=== PATIENT | female | born 1970 | race Caucasian/White ===

== ENCOUNTER → 2017-12-03 | Outpatient (CLI) | payer BC ==
[~2017-12-03] MED LIST: BIRTH CONTROL; PANT40 PO; VENL75ER; VICODIN 5-3001 EACH PO; [UNRECOGNIZED DRUG - REMARK]
== END | disposition home or self-care (01) ==
LOC: LAB SHORT 08:32 → PLD 08:32
DX: D22.5 Melanocytic nevi of trunk (principal); L57.0 Actinic keratosis
CPT/HCPCS: 88305

== ENCOUNTER → 2018-11-13 | Outpatient (CLI) | payer BC ==
[2018-11-13 11:55] LABS: BASOPHILS ABSOLUTE AUTO 0.06 K/mm3 (0.00-0.23); BASOPHILS PERCENT AUTO 1 % (0-2); EOSINOPHILS ABSOLUTE AUTO 0.09 K/mm3 (0.00-0.68); EOSINOPHILS PERCENT AUTO 1 % (0-6); Hematocrit 40.3 % (33.0-51.0); Hemoglobin 13.5 g/dL (11.5-16.0); IMMATURE GRAN ABSOLUTE AUTO 0.01 K/mm3 (0.00-0.10); IMMATURE GRAN PERCENT AUTO 0 % (0-1); LYMPHOCYTES ABSOLUTE AUTO 1.96 K/mm3 (0.84-5.20); LYMPHOCYTES PERCENT AUTO 23 % (21-46); MONOCYTES ABSOLUTE AUTO 0.61 K/mm3 (0.16-1.47); MONOCYTES PERCENT AUTO 7 % (4-13); Mean Corpuscular HGB 34.5 pg (26.0-34.0); Mean Corpuscular HGB Conc 33.5 g/dL (31.5-36.5); Mean Corpuscular Volume 103 fL (80-100); Mean Platelet Volume 9.7 fL (9.1-12.4); NEUTROPHILS ABSOLUTE AUTO 5.66 K/mm3 (1.96-9.15); NEUTROPHILS PERCENT AUTO 67 % (41-73); Platelet Count 233 K/mm3 (150-400); RDW Coefficient Variation 13.1 % (11.7-14.2); RDW Standard Deviation 49.9 fL (35.1-46.3); Red Blood Cell Count 3.91 M/mm3 (3.80-5.20); White Blood Cell Count 8.39 K/mm3 (4.00-11.30)
[2018-11-13 12:24] LABS: Alanine Aminotransfer (ALT/SGP 24 U/L (12-78); Alk Phos 41 U/L (50-136); Anion Gap 8 mmol/L (6-16); Aspartate Aminotrans (AST/SGOT 18 U/L (12-37); Bilirubin, Total 0.5 mg/dL (0.1-1.0); Blood Urea Nitrogen 10 mg/dL (8-24); Bun/Creatinine Ratio 16.1 (12.0-20.0); CO2, Blood 24 mmol/L (21-32); Calcium, Blood 8.5 mg/dL (8.5-10.1); Chloride, Blood 103 mmol/L (98-108); Creatinine, Blood 0.62 mg/dL (0.40-1.00); Glomerular Filtration Rate >60 (60-); Glucose, Blood 84 mg/dL (70-99); Potassium, Blood 3.4 mmol/L (3.5-5.5); Sodium, Blood 135 mmol/L (136-145)
== END | disposition home or self-care (01) ==
LOC: LAB SHORT 11:48 → LAB 11:48
DX: R10.9 Unspecified abdominal pain (principal)
CPT/HCPCS: 80053; 83690; 85025

== ENCOUNTER 2019-06-11 07:44 | Day surgery (SDC) | payer BC ==
[~2019-06-11 07:44] MED LIST changes: +Chantix1 MG PO; +Norco 10-325 T1 EACH PO; +PROAIR RESPICL90 MCG INH; +VENLAFAXINE HCL75 M1 PO
[2019-06-11] MEDS ORDERED: PANT40 PO (08:29)
[2019-06-11] MEDS ORDERED: ORTHO NOVUM PO (08:29)
[2019-06-11] MEDS ORDERED: BUPR150ER PO (08:29)
[2019-06-11] MEDS ORDERED: Prinivil10 MG PO (08:29)
== END 2019-06-11 10:33 | disposition home or self-care (01) ==
LOC: ORSCSDS 07:44
PROVIDERS: Otolaryngology
PROC: 0CB3XZX Excision of Soft Palate, External Approach, Diagnostic (ICD-10-PCS; principal; 2019-06-11 09:00)
PROC: 0CTPXZZ Resection of Tonsils, External Approach (ICD-10-PCS; principal; 2019-06-11 09:00)
DX: D10.4 Benign neoplasm of tonsil (principal); D10.39 Benign neoplasm of other parts of mouth; F17.210 Nicotine dependence, cigarettes, uncomplicated
CPT/HCPCS: 88304; 88305; J0330; J1100; J2001; J2250; J2704; J3010; J7120

== ENCOUNTER → 2019-08-12 | Outpatient (CLI) | payer BC ==
[~2019-08-12] MED LIST changes: +BUPR150ER PO; +ORTHO NOVUM PO; +Prinivil10 MG PO
== END | disposition home or self-care (01) ==
LOC: PLD 13:49 → LAB SHORT 13:49
DX: L57.0 Actinic keratosis (principal)
CPT/HCPCS: 88305

== ENCOUNTER 2019-12-29 09:14 | Day surgery (SDC) | payer BC ==
[~2019-12-29] VITALS: Ht 167.6 cm; Wt 77.0 kg
[~2019-12-29 09:14] MED LIST changes: +HYDACE10B PO; +PROAIR DIGIHAL90 MCG
== END 2019-12-29 11:02 | disposition home or self-care (01) ==
LOC: ORSCSDS 09:14
PROVIDERS: Surgery
PROC: 0DJD8ZZ Inspection of Lower Intestinal Tract, Via Natural or Artificial Opening Endoscopic (ICD-10-PCS; principal; 2019-12-29 10:30)
DX: Z12.11 Encounter for screening for malignant neoplasm of colon (principal); Z87.891 Personal history of nicotine dependence
CPT/HCPCS: J2250; J2704; J7120

== ENCOUNTER 2021-01-26 13:11 | Day surgery (SDC) | payer BC ==
[~2021-01-26] VITALS: Ht 170.2 cm; Wt 79.8 kg
== END 2021-01-26 14:50 | disposition home or self-care (01) ==
LOC: ORSCSDS 13:11
PROVIDERS: Surgery
PROC: 0DB68ZX Excision of Stomach, Via Natural or Artificial Opening Endoscopic, Diagnostic (ICD-10-PCS; principal; 2021-01-26 14:15)
PROC: 0DB58ZX Excision of Esophagus, Via Natural or Artificial Opening Endoscopic, Diagnostic (ICD-10-PCS; principal; 2021-01-26 14:15)
DX: K21.9 Gastro-esophageal reflux disease without esophagitis (principal); K22.70 Barrett's esophagus without dysplasia; F41.8 Other specified anxiety disorders; Z79.899 Other long term (current) drug therapy
CPT/HCPCS: 88305; 88342; J2250; J2704; J7120

== ENCOUNTER 2022-07-13 07:19 | Day surgery (SDC) | payer BC ==
[~2022-07-13] VITALS: Ht 170.2 cm; Wt 79.1 kg
[2022-07-13] MEDS ORDERED: Prinivil10 MG (07:39)
[2022-07-13] MEDS ORDERED: OMEP20ER (07:39)
== END 2022-07-13 09:45 | disposition home or self-care (01) ==
LOC: ORSCSDS 07:19
PROVIDERS: Surgery
PROC: 0DB48ZX Excision of Esophagogastric Junction, Via Natural or Artificial Opening Endoscopic, Diagnostic (ICD-10-PCS; principal; 2022-07-13 09:00)
PROC: 0DB58ZX Excision of Esophagus, Via Natural or Artificial Opening Endoscopic, Diagnostic (ICD-10-PCS; principal; 2022-07-13 09:00)
PROC: 0DB68ZX Excision of Stomach, Via Natural or Artificial Opening Endoscopic, Diagnostic (ICD-10-PCS; principal; 2022-07-13 09:00)
DX: K22.70 Barrett's esophagus without dysplasia (principal); K21.9 Gastro-esophageal reflux disease without esophagitis; F32.A Depression, unspecified; F41.9 Anxiety disorder, unspecified; F10.10 Alcohol abuse, uncomplicated; K29.70 Gastritis, unspecified, without bleeding; Z87.891 Personal history of nicotine dependence; Z79.899 Other long term (current) drug therapy
CPT/HCPCS: 88305; 88342; J2704; J7120

== ENCOUNTER 2022-11-16 13:55 | Emergency (ER) | payer BC ==
[~2022-11-16] VITALS: Ht 167.6 cm; Wt 80.3 kg
[~2022-11-16 13:55] MED LIST changes: +OMEP20ER; +Prinivil10 MG
[2022-11-16] MEDS ORDERED: BUPROPION XL150 M1 PO (14:58)
[2022-11-16 15:08] LABS: BASOPHILS ABSOLUTE AUTO 0.04 K/mm3 (0.00-0.23); BASOPHILS PERCENT AUTO 1 % (0-2); EOSINOPHILS ABSOLUTE AUTO 0.06 K/mm3 (0.00-0.68); EOSINOPHILS PERCENT AUTO 1 % (0-6); Hematocrit 36.4 % (33.0-51.0); Hemoglobin 13.1 g/dL (11.5-16.0); IMMATURE GRAN ABSOLUTE AUTO 0.02 K/mm3 (0.00-0.10); IMMATURE GRAN PERCENT AUTO 0 % (0-1); LYMPHOCYTES ABSOLUTE AUTO 1.15 K/mm3 (0.84-5.20); LYMPHOCYTES PERCENT AUTO 16 % (21-46); MONOCYTES ABSOLUTE AUTO 0.65 K/mm3 (0.16-1.47); MONOCYTES PERCENT AUTO 9 % (4-13); Mean Corpuscular HGB 34.2 pg (26.0-34.0); Mean Corpuscular Volume 95 fL (80-100); Mean Platelet Volume 9.5 fL (9.1-12.4); NEUTROPHILS PERCENT AUTO 74 % (41-73); Platelet Count 231 K/mm3 (150-400); RDW Coefficient Variation 12.5 % (11.7-14.2); RDW Standard Deviation 43.5 fL (35.1-46.3); Red Blood Cell Count 3.83 M/mm3 (3.80-5.20); White Blood Cell Count 7.42 K/mm3 (4.00-11.30)
[2022-11-16 15:24] LABS: Albumin, Blood 3.8 g/dL (3.4-5.0); Albumin/Globulin Ratio 1.2 (0.8-1.8); Bilirubin, Total 0.4 mg/dL (0.1-1.0); Bun/Creatinine Ratio 10.6 (12.0-20.0); Calcium, Blood 9.2 mg/dL (8.5-10.1); Creatinine, Blood 0.47 mg/dL (0.40-1.00); Globulin, Blood 3.2 g/dL (2.2-4.0); Potassium, Blood 3.7 mmol/L (3.5-5.5)
[2022-11-16 16:45] VITALS: BP 138/94
== END 2022-11-16 17:26 | disposition home or self-care (01) ==
LOC: ER 13:55
PROVIDERS: Student in an Organized Health Care Education/Training Program
DX: R07.89 Other chest pain (principal); R20.2 Paresthesia of skin; R20.0 Anesthesia of skin; Z87.891 Personal history of nicotine dependence; Z79.899 Other long term (current) drug therapy
CPT/HCPCS: 71045; 80053; 84484; 85025; 93005; 93010; 99284-25; A9270

== ENCOUNTER → 2022-12-27 | Outpatient (CLI) | payer BC ==
[~2022-12-27] MED LIST changes: +BUPROPION XL150 M1 PO
== END | disposition home or self-care (01) ==
LOC: LAB 13:30 → LAB SHORT 13:30
DX: R30.0 Dysuria (principal)
CPT/HCPCS: 87086

== ENCOUNTER → 2024-07-15 | Outpatient (CLI) | payer BC | END | disposition home or self-care (01) | LOC: LAB SHORT 16:50 → LAB 16:50 | DX: R30.0 Dysuria (principal) | CPT/HCPCS: 87077; 87086; 87186 ==

== ENCOUNTER → 2024-11-16 | Outpatient (CLI) | payer BC ==
[2024-11-19 09:58] LABS: HPVG SOURCE Cervical
== END | disposition home or self-care (01) ==
LOC: LAB 17:37 → LAB SHORT 17:37
PROVIDERS: Family Medicine
DX: Z01.419 Encounter for gynecological examination (general) (routine) without abnormal findings (principal)
CPT/HCPCS: 87624; 87625; G0123; G0145

== ENCOUNTER 2024-12-31 07:16 | Day surgery (SDC) | payer BC ==
[~2024-12-31] VITALS: Ht 170.2 cm; Wt 70.9 kg
[2024-12-31] VITALS (15 sets, daily range): BP systolic 92–141; BP diastolic 59–84
[~2024-12-31 07:16] MED LIST changes: +CYCL10; +GABA300; +LORA.5
--- NOTE | 2024-12-31 07:53 | NUR ---
History, Chart, Medications and Allergies reviewed before start of procedure. Lungs clear T/O to Auscultation. Patient confirms NPO status and agrees with scheduled surgery. Pre-Op teaching done. Pt verbalizes understanding.
--- NOTE | 2024-12-31 08:28 | NUR ---
12/31/24 0828 Maria C Castaneda CONFIRMED AND REVIEWED H&P, MEDCICATIONS, ALLERGIES, MEDICAL HISTORY, RESPIRATORY HISTORY, VITAL SIGNS, 3-LEAD EKG, CONSENTS, AND PHYSICIAN ORDERS. PATIENT CONFIRMS NPO STATUS AND AGREES WITH SCHEDULED PROCEDURE. MONITOR INTACT WITH CONTINUOUS PULSE OXIMETRY, CAPNOGRAPHY, 3-LEAD EKG, INTERMITTENT BP. SUPPLEMENTAL O2 TO BE TITRATED THROUGHOUT PROCEDURE TO MAINTAIN O2 SATURATION ABOVE 90%. PATIENT DETERMINED TO BE ASA APPROPRIATE FOR PROPOFOL SEDATION PRIOR TO START OF PROCEDURE BY DR. FERNÁNDEZ.
[2024-12-31] MEDS ORDERED: Midazolam HCl 1MG / ML 2ML Vial ONE (08:31)
--- NOTE | 2024-12-31 09:20 | NUR ---
Patient up to Ambulate independently. Gait steady. Patient States Post-Procedure ride home has been arranged. Discharged via wheelchair to private car for ride home.ALL BELONINGS SENT HOME WITH PATIENT.
== END 2024-12-31 23:00 | disposition home or self-care (01) ==
LOC: ORSCMMR 07:16 → ORD 08:30 → ORSCMMR 23:00
PROVIDERS: Surgery
PROC: 0DB48ZX Excision of Esophagogastric Junction, Via Natural or Artificial Opening Endoscopic, Diagnostic (ICD-10-PCS; principal; 2024-12-31 08:30)
PROC: 0DB68ZX Excision of Stomach, Via Natural or Artificial Opening Endoscopic, Diagnostic (ICD-10-PCS; principal; 2024-12-31 08:30)
DX: K22.70 Barrett's esophagus without dysplasia (principal); K44.9 Diaphragmatic hernia without obstruction or gangrene; K29.70 Gastritis, unspecified, without bleeding; K21.9 Gastro-esophageal reflux disease without esophagitis; F17.210 Nicotine dependence, cigarettes, uncomplicated; F41.9 Anxiety disorder, unspecified; F32.A Depression, unspecified; Z79.899 Other long term (current) drug therapy
CPT/HCPCS: 88305; 88341; 88342; J2250; J2704; J7120